=== PATIENT | male | born 1975 | race Caucasian/White ===

== ENCOUNTER 2022-07-22 18:53 | Observation (INO) ==
[2022-07-22] MEDS ORDERED: 0.9 % Sodium Chloride 1,000 ML IV ONE ×2 (19:32→21:48)
[2022-07-22] MEDS ORDERED: Ketorolac 30 MG/ML VIAL IVP ONE (19:32)
[2022-07-22 20:01] LABS: Bilirubin,Urine Negative (Negative); Blood,Urine Large (Negative); Clarity,Urine Clear (Clear); Color,Urine Colorless (Yellow); Glucose,Urine (UA) Normal (Normal); Ketones,Urine Negative (Negative); Leukocyte Esterase,Urine Negative (Negative); Mucus,Urine Few per lpf (None-Few); Nitrite,Urine Negative (Negative); Protein,Urine Trace mg/dL (Neg-Trace); RBC,Urine 0-3 per hpf (0-3); Urobilinogen,Urine Normal (Normal); WBC,Urine 0-3 per hpf (0-3)
[2022-07-22 20:09] LABS: Basophils % 0.2 %; Eosinophils # 0.1 K/mcL (0.0-0.6); Eosinophils % 0.7 %; Hematocrit 42.5 % (37.5-50.1); Hemoglobin 15.2 g/dL (12.9-16.9); Immature Granulocytes % 0.5 % (0-4); Lymphocytes # 2.1 K/mcL (0.6-4.6); Mean Corpuscular HGB Conc 35.8 g/dL (31.6-35.5); Mean Corpuscular Hemoglobin 32.1 pg (28.0-33.3); Mean Corpuscular Volume 89.7 fL (83.0-100.0); Mean Platelet Volume 8.8 fL (9.4-12.4); Monocytes # 1.5 K/mcL (0.0-1.3); Monocytes % 8.7 %; Neutrophils # 13.5 K/mcL (1.6-8.9); Platelet Count 330 K/mcL (140-400); Red Blood Count 4.74 M/mcL (4.19-5.50); Segmented Neutrophils % 77.9 %; White Blood Count 17.3 K/mcL (4.3-11.1)
[2022-07-22 20:23] LABS: Albumin 3.7 g/dL (3.5-5.7); Albumin/Globulin Ratio 1.2 (1.1-2.2); Bilirubin,Total 0.6 mg/dL (0.3-1.0); Calcium 10.6 mg/dL (8.6-10.3); Globulin 3.2 g/dL (2.4-3.5); Potassium 3.3 mEq/L (3.5-5.1); Total Protein 6.9 g/dL (6.4-8.9)
[2022-07-22] MEDS ORDERED: Morphine Sulfate 2 MG/ML SYRINGE IVP ONE ×2 (20:53→23:05)
[2022-07-22 23:33] LABS: Calcium 9.3 mg/dL (8.6-10.3); Potassium 3.5 mEq/L (3.5-5.1)
[2022-07-22] MEDS ORDERED: levoFLOXacin 750 MG/150 ML 750 MG/150 ML BAG IVPB ONE (23:57)
[2022-07-23] MEDS ORDERED: Naloxone 0.4 MG/ML INJ IVP PRN (00:20)
[2022-07-23] MEDS ORDERED: Ondansetron ODT 4 MG TAB.RAPDIS SL PRN (00:20)
[2022-07-23] MEDS ORDERED: Ringers Solution, Lactated 1,000 ML IVC SCH (01:00)
[2022-07-23] MEDS ORDERED: hydrOXYzine pamoate 25 MG CAPSULE PO PRN (01:28)
[2022-07-23] MEDS: *HR* HYDROcodone/Acet 5/325 mg TABLET PO PRN ×3 (02:08→15:55)
[2022-07-23] MEDS: Melatonin 3 MG TABLET PO PRN ×2 (02:08→23:51)
[2022-07-23 02:09] LABS: Calcium 9.1 mg/dL (8.6-10.3); Magnesium 1.5 mg/dL (1.6-2.6); Phosphorous 4.2 mg/dL (2.7-4.5); Potassium 3.3 mEq/L (3.5-5.1)
[2022-07-23 02:26] LABS: Hematocrit 36.1 % (37.5-50.1); Mean Corpuscular HGB Conc 35.5 g/dL (31.6-35.5); Mean Corpuscular Hemoglobin 31.4 pg (28.0-33.3); Mean Corpuscular Volume 88.7 fL (83.0-100.0); Mean Platelet Volume 9.2 fL (9.4-12.4); Platelet Count 296 K/mcL (140-400); Red Blood Count 4.07 M/mcL (4.19-5.50); Red Cell Distribution Width 12.9 % (11.5-14.5); White Blood Count 12.9 K/mcL (4.3-11.1)
[2022-07-23 02:30] LABS: Hemoglobin 12.8 g/dL (12.9-16.9)
[2022-07-23] MEDS: Sennosides 8.6 MG TABLET PO SCH ×2 (09:13→20:02)
[2022-07-23] MEDS: Nicotine 14 MG PATCH.TD24 TD SCH (09:13)
[2022-07-23] MEDS ORDERED: 0.9 % Sodium Chloride 1,000 ML IV ONE (10:14)
[2022-07-23] MEDS: 0.9 % Sodium Chloride 1,000 ML IVC SCH ×2 (11:46→23:52)
[2022-07-23] MEDS ORDERED: Morphine Sulfate 2 MG/ML SYRINGE IVP ONE (23:26)
[2022-07-24] MEDS ORDERED: *HR* LORazepam 2 MG/ML VIAL IVP ONE (00:23)
[2022-07-24 01:03] LABS: Amphetamine Screen,Urine Positive ng/mL (Cutoff=1000); Barbiturate Screen,Urine Negative ng/mL (Cutoff=200); Benzodiazepines Screen,Urine Negative ng/mL (Cutoff=200); Cannabinoid Screen,Urine Negative ng/mL (Cutoff = 50); Cocaine Screen,Urine Negative ng/mL (Cutoff= 300); Opiate Screen,Urine Positive ng/mL (Cutoff=300); Phencyclidine Screen,Urine Negative ng/mL (Cutoff=25)
[2022-07-24 04:46] LABS: Basophils % 0.4 %; Eosinophils # 0.2 K/mcL (0.0-0.6); Eosinophils % 2.2 %; Hematocrit 34.8 % (37.5-50.1); Hemoglobin 12.2 g/dL (12.9-16.9); Immature Granulocytes % 0.4 % (0-4); Lymphocytes # 2.2 K/mcL (0.6-4.6); Lymphocytes % 20.2 %; Mean Corpuscular HGB Conc 35.1 g/dL (31.6-35.5); Mean Corpuscular Hemoglobin 31.5 pg (28.0-33.3); Mean Corpuscular Volume 89.9 fL (83.0-100.0); Mean Platelet Volume 9.2 fL (9.4-12.4); Monocytes # 1.2 K/mcL (0.0-1.3); Monocytes % 10.5 %; Neutrophils # 7.3 K/mcL (1.6-8.9); Platelet Count 292 K/mcL (140-400); Red Blood Count 3.87 M/mcL (4.19-5.50); Red Cell Distribution Width 13.2 % (11.5-14.5); Segmented Neutrophils % 66.3 %
[2022-07-24 05:07] LABS: Calcium 8.6 mg/dL (8.6-10.3); Magnesium 1.6 mg/dL (1.6-2.6); Phosphorous 3.6 mg/dL (2.7-4.5); Potassium 3.4 mEq/L (3.5-5.1)
[2022-07-24] MEDS: 0.9 % Sodium Chloride 1,000 ML IVC SCH (07:56)
[2022-07-24] MEDS: Nicotine 14 MG PATCH.TD24 TD SCH (07:57)
[2022-07-24] MEDS: Sennosides 8.6 MG TABLET PO SCH ×2 (07:58→21:26)
[2022-07-24] MEDS ORDERED: CeFAZolin Syr 2,000MG/20 ML 2,000 MG/20 ML SYRINGE IVPB ONE (12:00)
[2022-07-24] MEDS ORDERED: *HR* Propofol 200 MG/20 ML VIAL IVP ONE (16:52)
[2022-07-24] MEDS ORDERED: Lidocaine -MPF 2% 5 ML VIAL ONE (16:56)
[2022-07-24] MEDS ORDERED: *HR* FentaNYL (PF) 100 MCG/2 ML VIAL ONE (16:56)
[2022-07-24] MEDS ORDERED: *HR* Midazolam HCl 2 MG/2 ML VIAL ONE (16:57)
[2022-07-24] MEDS ORDERED: Ondansetron 4 MG/2 ML VIAL ONE (18:14)
[2022-07-24] MEDS ORDERED: Lidocaine Jelly 11 ml Syringe ONE (18:15)
[2022-07-24] MEDS ORDERED: Ketamine HCL *QUVA* 50mg (1mL) SYRINGE ONE ×2 (18:17→18:40)
[2022-07-24] MEDS ORDERED: *HR* OxyCODONE Immed Rel 5 MG TABLET PO PRN (19:32)
[2022-07-24] MEDS ORDERED: hydrOXYzine pamoate 25 MG CAPSULE PO PRN (20:06)
[2022-07-24] MEDS ORDERED: Ondansetron ODT 4 MG TAB.RAPDIS SL PRN (20:06)
[2022-07-24] MEDS ORDERED: Naloxone 0.4 MG/ML INJ IVP PRN (20:06)
[2022-07-24] MEDS ORDERED: Melatonin 3 MG TABLET PO PRN (20:06)
[2022-07-25 07:08] VITALS: BP 136/81; PULSE 64; TEMP 98.4; O2SAT 96
[2022-07-25] MEDS: Sennosides 8.6 MG TABLET PO SCH (08:40)
[2022-07-25] MEDS ORDERED: Nicotine 14 MG PATCH.TD24 TD SCH (09:00)
[2022-07-25 10:12] LABS: Calcium 9.2 mg/dL (8.6-10.3); Magnesium 1.4 mg/dL (1.6-2.6)
== END 2022-07-25 13:33 | disposition home or self-care (01) ==
LOC: EMEROOARM 18:53 → 3ANU 18:53 → SUATTDRO 07-23 00:25 → 3ANU 07-23 01:00
PROVIDERS: ADMIT Internal Medicine; ATTEND Internal Medicine